=== PATIENT | male | born 1980 | race Caucasian/White ===

== ENCOUNTER 2021-07-20 17:24 | Emergency (ER) | payer SELFPAY ==
[~2021-07-20] VITALS: Ht 175.3 cm; Wt 111.1 kg
[2021-07-20 17:27] VITALS: BP 151/91
[2021-07-20] MEDS ORDERED: DIVA500E1 PO (19:13)
[2021-07-20] MEDS ORDERED: OLAN20TA1 PO (19:13)
--- NOTE | 2021-07-20 19:24 | NUR ---
Patient discharged with v/s stable. Was seen by ER MD, no nursing intervention required Written and verbal after care instructions given and explained. Patient alert, oriented and verbalized understanding of instructions. Ambulatory with steady gait. All questions addressed prior to discharge. ID band removed. Patient advised to follow up with PMD. Rx of Depakote , & zyprexa given. Patient educated on indication of medication including possible reaction and side effects. Opportunity to ask questions provided and answered.
== END 2021-07-20 19:24 | disposition home or self-care (01) ==
LOC: MED 17:24
DX: Z76.0 Encounter for issue of repeat prescription (principal)
CPT/HCPCS: 99281